=== PATIENT | male | born 1960 | race African-American/Black ===

== ENCOUNTER 2016-06-05 05:09 | Emergency (ER) | payer SELFPAY ==
[~2016-06-05] VITALS: Ht 190.5 cm; Wt 110.5 kg
[2016-06-05] MEDS ORDERED: METOCLOPRAMIDE HCL 10MG TABLET PO ONE (06:45)
[2016-06-05] MEDS ORDERED: MORPHINE SULFATE 10 MG/ML CPJ IM ONE (06:45)
[2016-06-05 08:10] VITALS: BP 142/86
== END 2016-06-05 08:16 | disposition home or self-care (01) ==
LOC: EDBD 05:11 → ER 05:11
DX: G43.909 Migraine, unspecified, not intractable, without status migrainosus (principal); Z87.81 Personal history of (healed) traumatic fracture; Z88.8 Allergy status to other drugs, medicaments and biological substances
CPT/HCPCS: 96372; 99283; J2270; J8597

== ENCOUNTER 2016-06-08 06:51 | Emergency (ER) | payer SELFPAY ==
[~2016-06-08] VITALS: Ht 190.5 cm; Wt 110.0 kg
[2016-06-08] MEDS ORDERED: METOCLOPRAMIDE HCL 10MG/2ML VIAL IV ONE (07:30)
[2016-06-08] MEDS ORDERED: DIPHENHYDRAMINE 50MG/ML VIAL IV ONE (07:30)
[2016-06-08] MEDS ORDERED: SODIUM CHLORIDE 0.9% 1,000 ML IV ONE (07:30)
[2016-06-08] MEDS ORDERED: MORPHINE SULFATE 4 MG/ML CPJ (NOT FOR IM USE) IV ONE (07:30)
[2016-06-08] MEDS ORDERED: MORPHINE SULFATE 10 MG/ML CPJ IM ONE (07:45)
[2016-06-08 07:54] VITALS: BP 158/77
== END 2016-06-08 08:21 | disposition left against medical advice (07) ==
LOC: ER 07:24
DX: G43.909 Migraine, unspecified, not intractable, without status migrainosus (principal); Z98.890 Other specified postprocedural states; Z88.8 Allergy status to other drugs, medicaments and biological substances
CPT/HCPCS: 96372; 99284; J1200; J2270; Z7610; J2765; J7030